=== PATIENT | female | born 1975 | race Caucasian/White ===

== ENCOUNTER 2017-01-15 11:53 | Emergency (ER) | payer BC ==
[2017-01-15 13:56] LABS: HEMOGLOBIN 13.2 gm/dl (12.3-15.3); RED BLOOD COUNT 4.41 M/UL (4.00-5.10); WHITE BLOOD COUNT 11.1 K/UL (4.5-11.0)
[2017-01-15 14:29] LABS: BUN/CREATININE RATIO 25 (0-10)
== END 2017-01-15 16:14 | disposition home or self-care (01) ==
LOC: ER1 11:53
PROVIDERS: Emergency Medicine
DX: R55 Syncope and collapse (principal); N92.0 Excessive and frequent menstruation with regular cycle; Z88.1 Allergy status to other antibiotic agents
CPT/HCPCS: 71010; 80053; 80307; 81001; 82550; 82553; 83874; 84439; 84443; 84484; 85025; 85610; 85730; 86850; 86900; 86901; 87086; 93005; 96361; 96374; 99284; J2405; J7030